=== PATIENT | female | born 1990 | race Caucasian/White ===

== ENCOUNTER 2024-07-09 10:42 | Emergency (ER) | payer MEDICAID, SELFPAY ==
[2024-07-09 10:43] VITALS: BP 141/74; PULSE 80; RESP 18; TEMP 36.6; O2SAT 100; BMI 27.7
[2024-07-09 10:48] VITALS: BP 141/74; PULSE 78; O2SAT 100
--- NOTE | 2024-07-09 10:52 | HMH.EDGENADL ---
Discharge Plan Disposition Patient Disposition: Home, Self-Care Referrals Follow up/Referrals: Mariajose Hooker DO [Staff Physician] - See instructions John Alvarez MD [Primary Care Provider] - See instructions Activity Restrictions/Add. Instructions Additional Instructions/Restrictions: Follow-up on Saturday as scheduled. If you develop any new or worsening symptoms, or if you become concerned for your health for any reason, return to the emergency department for evaluation contact Dr. Hooker's office for ABSORPTION AND ADSORPTION ENGINEER follow-up for source control bleeding. Clinical Impressions Clinical Impression: Anemia, Menorrhagia Instructions Patient Instructions: DI for Iron Deficiency Anemia-Adult Print Language Print Language: Danish Discharge ED Provider: Tai Catalan General Adult HPI General Chief complaint: Syncope Stated complaint: dizzy, syncopy Time Seen by Provider: 07/09/24 10:52 Mode of Arrival: Ambulatory Source of Information: Patient Limitations: No Limitations Description of Symptoms (Recalled from ER Triage Doc. by RN): Patient reports an iron deficiency and has an appointment with her specialist next week. States she has continued to get worse and feels as if she is going to pass out. History of Present Illness HPI narrative: This is a 34-year-old female with a history of iron deficiency anemia presents to the emergency department for feeling as if she is going to pass out. Patient states that for several weeks, she has had feelings of lightheadedness when standing and feeling that her heart is racing. She notes that she was diagnosed with iron deficiency anemia and told that her iron level was 3. She notes that Saturday of next week, she is supposed to get an iron infusion. She states that her symptoms worsen, which is why she is presenting to the ED today. She denies any current chest pain or shortness of breath. She states that she feels pale. She notes that she has heavy periods and is currently on her period. She states that they normally last 7 days and she is currently on day 4. She has no other complaints or concerns at this time. Related Data Allergies Allergy/AdvReac Type Severity Reaction Status Date / Time No Known Allergies Allergy Verified 07/09/24 10:51 [facility] Disclaimer: The information contained in this section may have been updated after the patient was seen, as this information can be updated by other users. Social History Smoking Status: Current every day smoker alcohol intake: never current occupational status: other details: unknown Travel in the last 8 weeks: None ROS Obtained: Yes All systems reviewed & no additional complaints except as documented Physical Exam General General appearance: alert and in no apparent distress Head Head exam: atraumatic Eye Eye exam: Present normal appearance ENT ENT exam: Present normal external ear exam Neck Neck exam: Present full ROM Chest Chest inspection: Present symmetric chest wall rise Respiratory Respiratory exam: Present normal lung sounds bilaterally; Absent respiratory distress Cardiovascular Cardiovascular exam: Present regular rate and normal rhythm Abdominal Exam Abdominal exam: Present soft; Absent tenderness or guarding Extremities Exam Extremities exam: Present normal inspection Back Exam Back exam: Present normal inspection Neurological Exam Neurological exam: Present alert and oriented X3 Psychiatric Psychiatric exam: Present normal affect Skin Skin exam: Present warm, dry and other (pale) Medical Decision Making Medical Records Medical records reviewed: Yes I reviewed the patient's medical records. MR Comment: No previous iron studies or baseline hemoglobin levels are in the EMR Ashish Inquiry Pt receiving controlled substance: No Vital Signs: 07/09/24 10:43 07/09/24 10:48 07/09/24 11:30 Temperature 97.9 F Temperature Source Oral Pulse Rate 78 69 Pulse Rate [Radial] 80
--- NOTE | 2024-07-09 11:08 | ECG_ITS ---
APPROVED REPORT Exam: Resting ECG HR:75 bpm ECG Measurements Heart Rate 75 AXES OK 171 P 61 QRSd 94 QRS 75 QT 375 T 60 QTc 405 Conclusion SINUS RHYTHM NORMAL ECG Electronically signed by : ZOILA WELDON, 07/14/2024 18:26:20
[2024-07-09 11:10] LABS: Basophils # 0.1 K/mm3 (0-0.2); Basophils % 0.8 % (0.1-2.0); Eosinophils # 0.2 K/mm3 (0.0-0.4); Eosinophils % 2.9 % (0.1-12.0); Hematocrit 27.5 % (37.0-47.0); Hemoglobin 7.9 g/dL (12.2-16.2); Lymphocytes # 2.5 K/mm3 (0.7-4.5); Lymphocytes % 34.1 % (10-50); Mean Corpuscular HGB Conc 28.8 g/dL (31.8-35.4); Mean Corpuscular Hemoglobin 20.6 pg (27.0-31.2); Mean Corpuscular Volume 71.5 fl (81-99); Mean Platelet Volume 7.2 fl (7.4-10.4); Monocytes # 0.5 K/mm3 (0.1-1.0); Monocytes % 6.8 % (1.7-9.3); Neutrophils % 55.3 % (37.0-80.0); Platelet Count 453 K/mm3 (142-424); Red Blood Count 3.84 M/mm3 (4.20-5.40); Red Cell Distribution Width 19.6 % (11.5-17.5); White Blood Count 7.3 K/mm3 (4.8-10.8)
[2024-07-09 11:23] LABS: Albumin Level 4.4 g/dl (3.5-5.0); Chloride 106 mmol/L (98-107); Sodium 136 mmol/L (136-145)
[2024-07-09 11:24] LABS: Potassium 4.8 mmoL/L (3.5-5.1)
[2024-07-09 11:26] LABS: Alanine Aminotransferase 24 U/L (12-78); Albumin/Globulin Ratio 1.6 (1.1-1.8); Alkaline Phosphatase 51 U/L (38-126); Anion Gap 8.8 mEq/L (5-15); Aspartate Amino Transferase 38 U/L (14-36); Blood Urea Nitrogen 9 mg/dl (7-17); Carbon Dioxide 26 mmol/L (22.0-30.0); Creatinine Clearance Estimated 110 mL/min (50-200); Estimated Glomerular Filt Rate 71 ml/min (>60); GFR (African American) 86 ML/MIN (>60); Globulin 2.8 g/dL (1.3-3.2); Glucose 101 mg/dl (74-100); Total Protein,Serum 7.2 g/dl (6.3-8.2)
[2024-07-09 11:30] VITALS: PULSE 69; O2SAT 99
[2024-07-09 11:57] LABS: Thyroid Stimulating Hormone 1.36 uIU/mL (0.465-4.68)
[2024-07-09 12:00] VITALS: PULSE 71; O2SAT 99
[2024-07-09 12:30] VITALS: PULSE 71; O2SAT 98
--- NOTE | 2024-07-09 14:02 | PC.NURSE ---
Dr. Catalan wanted to check on pt receiving Iron infusion. pt does have an appt with Dr. Lowe on Saturday (07/14). I called infusion and s/w Rachael Cabrales RN. She reports unfortunately they will not able to get infusion until after seeing Dr. Lowe and will need approval. Dr. Catalan notified of this
[2024-07-09 14:43] LABS: Iron 39 ug/dL (37-170)
[2024-07-09 14:52] LABS: Total Iron Binding Capacity 419 ug/dL (265-497)
[2024-07-09 15:20] VITALS: BP 133/70; PULSE 70; RESP 20; TEMP 36.7; O2SAT 98
[2024-07-09 15:20] LABS: Ferritin 4.02 ng/ml (6.24-137)
== END 2024-07-09 15:29 | disposition home or self-care (01) ==
PROVIDERS: Emergency Provider Student in an Organized Health Care Education/Training Program; PCP Family Medicine
DX: D50.9 Iron deficiency anemia, unspecified (principal); N92.0 Excessive and frequent menstruation with regular cycle
CPT/HCPCS: 80050; 80053; 82728; 83540; 83550; 84443; 85025; 93005; 99283

== ENCOUNTER 2024-07-16 10:04 | Outpatient (CLI) | payer MEDICAID, SELFPAY ==
[2024-07-16 10:08] VITALS: BP 130/78; PULSE 74; RESP 16; TEMP 36.7; O2SAT 98; BMI 26.4
[2024-07-16] MEDS: SODIUM CHLORIDE 0.9% 10ML FLUSH SYRINGE 10 ML IV (10:15)
[2024-07-16] MEDS: IRON SUCROSE COMPLEX 200 MG in 0.9 % SODIUM CHLORIDE 100 ML 220 MG IV (10:18)
[2024-07-16] MEDS: SODIUM CHLORIDE 0.9% 50ML BAG 50 ML IV (10:18)
[2024-07-16 10:52] VITALS: BP 136/73; PULSE 69; RESP 16; O2SAT 99
== END 2024-07-16 10:57 | disposition home or self-care (01) ==
LOC: INF 10:05
PROVIDERS: Visit Provider Internal Medicine Medical Oncology
DX: D50.9 Iron deficiency anemia, unspecified (principal)
CPT/HCPCS: 96365; J1756

== ENCOUNTER 2024-07-21 11:12 | Outpatient (CLI) | payer MEDICAID, SELFPAY ==
[2024-07-21 11:26] VITALS: BP 154/83; PULSE 83; RESP 18; O2SAT 100
[2024-07-21] MEDS: IRON SUCROSE COMPLEX 200 MG in 0.9 % SODIUM CHLORIDE 100 ML 220 MG IV (11:26)
[2024-07-21] MEDS: SODIUM CHLORIDE 0.9% 50ML BAG 50 ML IV (11:26)
[2024-07-21 12:05] VITALS: BP 130/81; PULSE 77; RESP 18; O2SAT 100
== END 2024-07-21 12:07 | disposition home or self-care (01) ==
LOC: INF 11:12
PROVIDERS: PCP Family Medicine; Visit Provider Internal Medicine Medical Oncology
DX: D50.9 Iron deficiency anemia, unspecified (principal)
CPT/HCPCS: 96365; J1756

== ENCOUNTER 2024-07-28 09:08 | Outpatient (CLI) | payer MEDICAID, SELFPAY ==
[2024-07-28 09:21] VITALS: BP 116/71; PULSE 72; RESP 18; TEMP 36.4; O2SAT 100
[2024-07-28] MEDS: IRON SUCROSE COMPLEX 200 MG in 0.9 % SODIUM CHLORIDE 100 ML 220 MG IV (09:21)
[2024-07-28] MEDS: SODIUM CHLORIDE 0.9% 50ML BAG 50 ML IV (09:21)
[2024-07-28] MEDS: SODIUM CHLORIDE 0.9% 10ML FLUSH SYRINGE 10 ML IV (09:21)
[2024-07-28 10:00] VITALS: BP 117/63; PULSE 65; RESP 16; TEMP 36.4; O2SAT 100
== END 2024-07-28 10:05 | disposition home or self-care (01) ==
LOC: INF 09:09
PROVIDERS: PCP Family Medicine; Visit Provider Internal Medicine Medical Oncology
DX: D50.9 Iron deficiency anemia, unspecified (principal)
CPT/HCPCS: 96365; J1756

== ENCOUNTER 2024-08-04 09:06 | Outpatient (CLI) | payer MEDICAID, SELFPAY ==
[2024-08-04 09:16] VITALS: BP 139/67; PULSE 65; RESP 18; TEMP 36.6; O2SAT 99
[2024-08-04] MEDS: SODIUM CHLORIDE 0.9% 50ML BAG 50 ML IV (09:16)
[2024-08-04] MEDS: SODIUM CHLORIDE 0.9% 10ML FLUSH SYRINGE 10 ML IV (09:16)
[2024-08-04] MEDS: IRON SUCROSE COMPLEX 200 MG in 0.9 % SODIUM CHLORIDE 100 ML 220 MG IV (09:16)
[2024-08-04 09:55] VITALS: BP 129/66; PULSE 73; RESP 16; TEMP 36.6; O2SAT 99
== END 2024-08-04 09:57 | disposition home or self-care (01) ==
LOC: INF 09:06
PROVIDERS: PCP Family Medicine; Visit Provider Internal Medicine Medical Oncology
DX: D50.9 Iron deficiency anemia, unspecified (principal)
CPT/HCPCS: 96365; J1756

== ENCOUNTER 2024-08-11 09:18 | Outpatient (CLI) | payer MEDICAID, SELFPAY ==
[2024-08-11 09:38] VITALS: BP 114/70; PULSE 80; RESP 18; TEMP 36.4; O2SAT 99; BMI 26.3
[2024-08-11] MEDS: IRON SUCROSE COMPLEX 200 MG in 0.9 % SODIUM CHLORIDE 100 ML 220 MG IV (09:39)
[2024-08-11] MEDS: SODIUM CHLORIDE 0.9% 10ML FLUSH SYRINGE 10 ML IV (09:39)
[2024-08-11] MEDS: SODIUM CHLORIDE 0.9% 50ML BAG 50 ML IV (09:39)
[2024-08-11 10:25] VITALS: BP 124/63; PULSE 66; RESP 18; TEMP 36.4; O2SAT 100
== END 2024-08-11 10:30 | disposition home or self-care (01) ==
LOC: INF 09:19
PROVIDERS: PCP Family Medicine; Visit Provider Internal Medicine Medical Oncology
DX: D50.9 Iron deficiency anemia, unspecified (principal)
CPT/HCPCS: 96365; J1756

== ENCOUNTER 2025-05-11 00:31 | Emergency (ER) | payer MEDICAID, SELFPAY ==
[2025-05-11 00:43] VITALS: BP 140/83; PULSE 80; RESP 16; TEMP 37.2; O2SAT 99; BMI 24.3
--- OUTSIDE RECORDS SUMMARY | 2025-05-11 01:03 | XMS_ITS | Data Portability ---
Author Organization [facility], [facility] Address [address] [place] [id number] Assessment No assessment recorded. Plan of Treatment Reminders Order Date Submit Date Provider Last Modified By Organization Details Last Modified Time Details Appointments None recorded. Lab None recorded. Referral None recorded. Procedures None recorded. Surgeries None recorded. Imaging None recorded. Medication Orders Infed 50 mg/mL injection solution 2023 024 [id number] [id number], [address] [place], [address], 15:22:15 Patient TargetsNo targets recorded. Patient InstructionsNo instructions recorded. Reason for Referral None Reported. Procedures Surgical History Date Name Laterality Status Provider Name and Address Organization Details Recorded Time tubal occlusion completed V[facility] 07/06/2024 14:48:58 delivery only completed Viji [facility] 07/06/2024 14:49:37 tonsillectomy completed [facility]iji [facility] 07/06/2024 14:49:53 Imaging Results None recorded. Procedure Notes None recorded. Medical Equipment None Reported. Allergies No known drug allergies Medications Name Sig Start Date Stop Date Status Note LastModified by Organization Details LastModified Time sertraline 25 mg tablet TAKE 1 TABLET BY MOUTH EVERY DAY active Not Available Not Available No t Available Infed 50 mg/mL injection solution Infuse 1000mg IV once 024 active Not Available Not Available Not Avai lable Vitals Date Recorded Body height Body mass index (BMI) Body weight Body temperature Oxygen saturation Oxygen saturation in Arterial blood by Pulse oximetry Heart rate Respiratory rate Systolic blood pressure Diastolic blood pressure Provider Name and Address Organization Details Last Updated DateTime 172.72 cm 27 kg/m2 10460.2 9 g 98.4 [degF] 98 % 98 % 92 /min 16 /min 121 mm[Hg] 59 mm[Hg] Viji [facility] [place] 14:39:48 Social History Question Answer Notes LastModified by Organizat ion Details LastModified Time Tobacco Smoking Status Former Smoker Viji willett, [facility] [place] 07/06/2024 14:42:39 Do You Have An Advance Directive? No Information n ot available 07/06/2024 Do You Wear A Helmet When Biking? No Information not available 07/06/2024 Are You Blind Or Do You Have Difficulty Seeing? Yes Information n ot available 07/06/2024 Is Blood Transfusion Acceptable In An Emergency? Yes Information not available 07/06/2024 What Is Your Level Of Caffeine Consumption? Moderate Information not available 07/06/2024 In The 14 Days Before Symptom Onset, Have You Had Close Contact With A Laboratory-confirm ed COVID-19 While That Case Was Ill? No Information n ot available 07/06/2024 In The 14 Days Before Symptom Onset, Have You Had Close Contact With A Person Who Is Under Investigation For COVID-19 While That Person Was Ill? No Information not available 07/06/2024 Have You Been To An Area Known To Be High Risk For COVID-19? No Information not available 07/06/2024 Are You Deaf Or Do You Have Serious Difficulty Hearing? No Information not available 07/06/2024 What Type Of Diet Are You Following? REGULAR Information n ot available 07/06/2024 Have You Processed Blood Or Body Fluids From An Ebola Virus Disease Patient Without Appropriate PPE? No Information not available 07/06/2024 Do You Reside In Or Have You Traveled To An Area Where Ebola Virus Transmission Is Active? No Information not available 07/06/2024 Have There Been Any Changes To Your Family Or Social Situation? No Information no t available 07/06/2024 Are There Any Guns Present In Your Home? No Information not available 07/06/2024 Have You Recently Or Are You Planning To Travel To An Area With Zika Virus? No Information not available 07/06/2024 Do You Use Insect Repellent Routinely? No Information not available 07/06/2024 Do You Feel Safe At Home? Yes Information not available 07/06/2024 Do You Have A Medical Power Of Foundry Tender? No Information not available 07/06/2024 How Many Children Do You Have? 5 Information not available 07/06/2024 What Is Your Current Pack Years? 10-19packyear s Information not available 07/06/2024 Do You Have Any Pets? Yes Information not available 07/06/2024 Do You Use Protection During Sex? No Tubal Information not available 07/06/2024 What Is Your Relationship Status? Information not available 07/06/2024 Do You Use Your Seat Belt Or Car Seat Routinely? Yes Information not available 07/06/2024 Are You Sexually Active? Yes Information not available 07/06/2024 Do You Have Smoke And Carbon Monoxide Detectors In Your Home? Yes Information not available 07/06/2024 At What Age Did You Start Smoking Tobacco? 28 Information not available 07/06/2024 Are You Passively Exposed To Smoke? No Information no t available 07/06/2024 How Much Tobacco Do You Smoke? 1 PPD Information not available 07/06/2024 Do You Use Sunscreen Routinely? No Information not available 07/06/2024 How Many Years Have You Smoked Tobacco? 5 Information not available 07/06/2024 Do You Have Difficulty Walking Or Climbing Stairs? No Information not available 07/06/2024 Are You Currently In School? No Information not available 07/06/2024 Sex: Unknown Functional Status Question Answer Note LastModified by Organizat ion Details LastModified Time Do you use any illicit or recreational drugs? No Information not available 07/06/2024 Do you or have you ever used any other forms of tobacco or nicotine? No Information not available 07/06/2024 What is your level of alcohol consumption? Occasional Information not available 07/06/2024 Are you currently employed? No Information not available 07/06/2024 Do you have transportation difficulties? No Information not available 07/06/2024 Do you have difficulty doing errands alone? No Information not available 07/06/2024 Are you able to care for yourself? Yes Information n ot available 07/06/2024 Do you have difficulty dressing or bathing? No Information not available 07/06/2024 What is your exercise level? None Information not available 07/06/2024 Mental Status Question Answer Note LastModified by Organizat ion Details LastModified Time Do you feel stressed (tense, restless, nervous, or anxious, or unable to sleep at night)? [id number] Information not available 07/06/2024 Do you have difficulty concentrating, remembering or making decisions? No Information no t available 07/06/2024 Family History Nothing Reported. Medical History Condition Response Allergies (Food, seasonal, environmental ) N Allergies/Hayfever N Anxiety/Depression Y Gout N Thyroid Disease N Atrial Fibrillation N Colon Cancer N Blood Diseases N Hyperthyroidism N Breast Cancer N Emphysema N Lung Disease N Hypothyroidism N Brain Tumors N COPD N Anemia Y Multiple Sclerosis N Anesthesia Complications N Lung Mass N Diabetes N Autoimmune disease N Arthritis Y Blood Clot N Congestive Heart Failure (CHF) N Hyperlipidemia N Acid Reflux (GERD) N Cancer N Diverticulitis N Bladder or Kidney Problems N High Cholesterol N GERD/Reflux N Aneurysm N Liver Disease N Heart Disease N Arrhythmia N Fibromyalgia N Hypertension N Osteoporosis N Kidney Disease N Gynecological HistoryNo gynecological history recorded. Obstetrics History GPAL:G 0 P 0 0 0 0 Past Encounters Encounter ID Performer Location Encounter Start Date Encounter Closed Date Diagnosis/Indication Diagnosis SNOMED-CT Code Diagnosis ICD10 Code Diagnosis Note [id number] MD SANGITA PATINO [facility] [address] [place] [id number] 07/06/2024 14:31:16 07/06/2024 15:10:03 Iron deficiency anemia 66748217 D50.9 The patient prefers treatment at [facility] since it is closer to her house but I explained that I do not have privileges at that hospital. I recommend treatment with Infed since it can be given in 1 day. She does need treatment urgently since her Hgb is very low at 7.7. I recommend she follow up in 6 weeks for repeat CBC and iron studies. Health Concerns Section Related Observation LastModified by Organization Detai ls LastModified Time None Recorded Concern Status LastModified by Organization Details LastModified Time None Recorded Advance Directives Directive N: Payers Insurance Date Sequence Insurance Name Policy Number Policy Morillo Covered Member ID Morillo Member ID Guarantor Name 08/18/2024 1 [facility] (MEDICAID HMO) Susana Tirado [id number] Susana Corbett Notes Date Note Type Note Provider Name and Address Organization Details Recorded Time 07/06/2024 text/html The pt comes in today for severe iron deficiency. She is fatigued and short of breath. She even feels unsteady at times and she craves ice all day long. She has very heavy periods and has needed IV iron before. The last time she got IV iron was in 2021 when she was with her daughter. She has been on oral iron but it did not raise her iron levels in the past. She says she only goes to the doctor when she is but she went to her PCP recently because she was concerned something serious was happening. Her iron and blood levels have never been this low according to the pt. Labs 07/03/24:WBC 8.5, Hgb 7.7, MCV 76, Plts 292, iron sat 3%, ferritin 4. NATALI OJEDA MD [address] [facility],[address], [place], [address], [facility] [place] 07/06/2024 15:22:55 OBGyn Episode No OBEpisode recorded.
--- OUTSIDE RECORDS SUMMARY | 2025-05-11 01:03 | XMS_ITS | Clinical Summary ---
Author Organization [facility] Address [address] [place] [address] Care Team Providers Care Coater Name Role Phone Pcp, No Primary Care Provider [phone] Source Comments This information has been disclosed to you from confidential records protectedfrom disclosure by state law. You shall make no further disclosure of thisinformation without the specific, written, and informed release of theindividual to whom it pertains, or as otherwise permitted by law. A generalauthorization for the release of medical or other information is not sufficientfor the purposes of therelease of HIV test results or diagnoses. [id number] Allergies No known active allergies Medications PNV b#95-ferrous fumarate-FA 28 mg iron- 800 mcg Tab Take 1 tablet by mouth daily. 30 tablet 12 1 Active ferrous gluconate (FERGON) 324 MG tabletIndications: complicated by anemia Take 1 tablet (324 mg total) by mouth daily with breakfast. 30 tablet 5 2 Active docusate sodium (COLACE) 100 MG capsule Take 1 capsule (100 mg total) by mouth daily. 60 capsule 2 Active hydrOXYzine HCL (ATARAX) 50 MG tablet Take 1 tablet (50 mg total) by mouth at bedtime as needed for Itching (for sleep). 30 tablet 2 Active simethicone (MYLICON) 80 MG chewable tablet Chew 1 tablet (80 mg total) by mouth 4 times a day as needed for Flatulence (after meals and at bedtime). 30 tablet 2 Active polyethylene glycol (GLYCOLAX) 17 gram/dose powder Take 17 g by mouth daily. 255 g 2 Active acetaminophen (TYLENOL) 500 MG tablet Take 2 tablets (1,000 mg total) by mouth every 8 hours. 60 tablet 1 2 Active ibuprofen (MOTRIN) 200 MG tablet Take 2 tablets (400 mg total) by mouth every 8 hours. 60 tablet 1 2 Active senna-docusate (SENNA-S) 8.6-50 mg per tablet Take 1 tablet by mouth every 12 hours as needed for Constipation. 20 tablet 2 Active ondansetron (ZOFRAN-ODT) 4 MG disintegrating tablet Take 1 tablet (4 mg total) by mouth every 8 hours as needed for Nausea. 20 tablet 2 Active Active Problems Problem Noted Date Diagnosed Date care following delivery 11/2021 BV (bacterial vaginosis) 01/07/2022 Anemia affecting in third trimester Overview (03/22/2022): Iron levels very low Start supplement 11/30 Venofer infusions started 02/2022 (weekly) Immunizations Immunization Administration Dates Next Due Influenza, quadrivalent, preservative-free 11/30/2021(Deferred: Patient Refused) tdap 01/23/2022,07/28/2016,07/01/2011 Family History Relation Status Comments Father Alive Maternal Grandfather Maternal Grandmother Alive Mother Alive Paternal Grandfather Alive Paternal Grandmother Alive Social History Tobacco Use Types Packs/Day Years Used Date Smoking Tobacco: Every Day Cigarettes 1 4 Smokeless Tobacco: Never Tobacco Cessation:Ready to Q uit: No Alcohol Use Standard Drinks/Week Comments Not Currently 0 (1 standard drink = 0.6 oz pur e alcohol) AUDIT-C Answer Date Recorded Q1: How often do you have a drink containing alc ohol? Monthly or less 03/30/2022 Q2: How many drinks containi ng alcohol do you have on a typical day when you are drinking? 3 or 4 03/30/2022 Q3: How often do you have si x or more drinks on one occasion? Less than monthly 03/30/2022 PHQ-2 Answer Date Recorded PHQ-2 Total Score 0 11/02/2021 [place] Depression Scale Answer Date Recorded [place] Depression Scale Total 0 05/11/2022 The thought of harming myself has occurred to me . Never 05/11/2022 Comments No Sex and Gender Information Value Date Recorded Sex Assigned at Female 09/26/2021 3:11 PM EST Legal Sex Female 6:30 PM EST Gender Identity Female 09/26/2021 3:11 PM EST Sexual Orientation Straight 09/26/2021 3: 11 PM EST Last Filed Vital Signs Vital Sign Reading Time Taken Comments Blood Pressure 125/72 05/11/2022 10:29 AM EDT Pulse 79 05/11/2022 10:29 AM EDT Temperature 36.4 C (97.5 F) 04/01/2022 8:15 AM EDT Respiratory Rate 18 04/01/2022 8:15 AM EDT Oxygen Saturation 98% 04/01/2022 8:15 AM EDT Inhaled Oxygen Concentration 98% 04/01/2022 8 :15 AM EDT Weight 84.8 kg (187 lb) 05/11/2022 10:29 AM EDT Height 172.7 cm (5' 8 ) 05/11/2022 10:29 AM EDT Body Mass Index 28.43 05/11/2022 10:29 AM EDT Plan of Treatment Health Maintenance Due Date Last Done Comments Hepatitis C Screening (MyChart) 1988 Depression Screening 01/21/2006 Immunization: Hepatitis B (1 of 3 - 19+ 3-dose series) 01/21/2007 Immunization: Pneumococcal ( 1 of 2 - PCV) 01/21/2007 Cervical Cancer Screening/Pa p Smear (MyChart) 01/21/2018 Alcohol Misuse Screening 03/30/2023 03/30/2022 Immunization: COVID-19 ( season) 2024 Immunization: Influenza (MyC rodriguez) (Season Ended) 2025 Immunization: DTaP/Tdap/Td ( 4 - Td or Tdap) 01/24/2032 01/23/2022, 07/28/2016, 07/01/2011 HIV Screening Completed 03/30/2022, 11/02/2021 Procedures Procedure Name Priority Date/Time Associated Diagnosis Comments , HIV 1/2 AB+AG WITH REFLEX STAT 03/30/2022 7:25 AM EDT from Last 3 Months or Most Recently Relevant to Health Maintenance Results * , HIV 1/2 Ab+Ag with Reflex (03/30/2022 7:25 AM EDT) HIV 1+2 AB/AGN Nonreactive Nonreactive 03/30/2022 8:16 AM EDT HEALTH LAB Serum 03/30/2022 7:25 AM EDT 03/30/2022 7:30 AM EDT Narrative HEALTH LAB - 03/30/2022 8:16 AM EDT HIV-1 p24 Antigen and HIV-1/HIV-2 Antibody not detected. us Roxi Cavanaugh MD LAB BLOOD ORDERABLES Final R esult [facility] [address] [place] [address], [facility] from Last 3 Months or Most Recently Relevant to Health Maintenance [place] [address] [place] [address] Advance Directives For more information, please contact: [phone] * Full Code (Latest Code Status on File) Date Activated Date Inactivated Comments 03/30/2022 12:05 PM 04/01/2022 5:47 PM * Full Code Date Activated Date Inactivated Comments 03/30/2022 7:45 AM 03/30/2022 12:04 PM Care Teams Coater Relationship Specialty Start Date End Date Pcp, No No Address PCP - General 10/12/21
--- NOTE | 2025-05-11 01:40 | PC.NURSE ---
ed provider at the bedside at this time.
[2025-05-11] MEDS: LIDOCAINE 5% TRANSDERMAL PATCH 1 EACH TD (01:54)
[2025-05-11] MEDS: METHOCARBAMOL 500MG TABLET 500 MG PO (01:54)
[2025-05-11] MEDS: ACETAMINOPHEN 500MG TAB 1000 MG PO (01:54)
[2025-05-11] MEDS: KETOROLAC 30MG/ML VIAL 30 MG IM (01:54)
--- NOTE | 2025-05-11 01:56 | HMH.EDGENADL ---
Discharge Plan Disposition Patient Disposition: Home, Self-Care Condition: Good Prescriptions Prescriptions: New methocarbamol 500 mg tablet 500 mg PO Q6H PRN (Reason: muscle spasm) Qty: 30 0RF lidocaine 5 % adhesive patch,medicated See Rx Instructions .ROUTE .COMPLEX Qty: 15 0RF Rx Instructions: Apply to most painful area and leave on for 12 hours, remove and leave off for 12 hours before using a new patch Referrals Follow up/Referrals: John Alvarez MD [Primary Care Provider, Medical] - See instructions Activity Restrictions/Add. Instructions Additional Instructions/Restrictions: You were evaluated in the ER and are believed to be appropriate for discharge at this time. Take Tylenol and ibuprofen as needed for pain, do not exceed the recommended dose on the bottle. Drink water and eat a small snack each time you take these medications to avoid side effects. Take the prescribed methocarbamol (muscle relaxer) if needed for muscle spasm, be mindful this medication may make you sleepy, do not drive or operate machinery after taking it. Use the prescribed lidocaine patches as directed. Wear the sling as needed for comfort, but as discussed remove your arm from the sling multiple times a day and perform gentle range of motion exercises to avoid frozen shoulder. Call your primary care office and make an appointment for reevaluation in 2 to 3 days to discuss further follow-up, possible physical therapy, possible MRI or other imaging. Return to the ER with any new, worsening, or otherwise concerning symptoms. Clinical Impressions Clinical Impression: Acute pain of right shoulder Print Language Print Language: Slovak Discharge ED Provider: Bre Valdes Adult HPI General Chief complaint: Extremity Injury, Upper Stated complaint: r shoulder pain Time Seen by Provider: 05/11/25 00:54 Mode of Arrival: Ambulatory Source of Information: Patient Description of Symptoms (Recalled from ER Triage Doc. by RN): Pt presents for eval of pain to right shoulder that began approx 1 week ago when the patient woke up in an awkward position. Pt reports pain has now moved to her neck, worse with movement. Pt reports to having a massage in attempts to relieve the pain with some relief. History of Present Illness HPI narrative: 35-year-old female presents to the ER complaining of right shoulder pain. Patient reports 1 week ago her symptoms started when she woke up in a very awkward position with her arm kind of raised and cricket under her head. She states for at least a day her arm felt like it was asleep and numb/tingly. That sensation has resolved but she has continued having a sensation of tight muscle and sharp, shooting pain into the right arm. Pain radiates from the right side of the neck through the top of the right shoulder and into the right arm. She reports she had a massage a few days ago which somewhat relieved the tightness feeling in the muscle but has not relieved the sharp, shooting pain. She states she has exquisite pain when trying to raise her arm out to the side or above her head. She does not have any numbness, tingling, or specific weakness in it, but the pain is unbearable with some movements. She has not had any traumatic injuries. She reports she has taken ibuprofen a few times for this without relief. She also tried a clear topical muscle rub that did not offer any relief. She has not had any imaging, this is the first time she has been evaluated for this problem. She denies difficulty breathing, nausea, vomiting, diarrhea, or other associated symptoms. Patient is right-hand dominant. 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 Related Data Previous Rx's ?Medication ?Instructions ?Recorded lidocaine 5 % topical patch See Rx Instructions topical 05/11/25 .COMPLEX #15 ea methocarbamol 500 mg tablet 500 mg PO Q6H PRN muscle spasm #30 05/11/25 tabs Allergies Allergy/AdvReac Type Severity Reaction Status Date / Time No Known Allergies Allergy Verified 04/08/25 13:50 [facility] Disclaimer: The information contained in this section may have been updated after the patient was seen, as this information can be updated by other users. Medical History (Updated 05/11/25 @ 01:51 by Bre Valdes MD) No significant past medical history Surgical History (Updated 04/08/25 @ 15:46 by Mariajose Hooker DO) Hx of section History of surgery on wrist Hx of tonsillectomy Family History Other No significant family history Social History Smoking Status: Current every day smoker tobacco type: cigarettes packs per day: 1 alcohol intake: never current occupational status: unemployed and other details: unknown Travel in the last 8 weeks?: None Have you lived/traveled outside [place] in past 30 days?: No Contact w/someone who lives/traveled outside US past 30 days?: No Exposure to someone with infectious disease in past 14 days?: No Do you have a fever (greater than 100.4 F or 38 C)?: No Have you tested positive for COVID-19?: No Exposed to someone with COVID-19 in past 14 days?: No Do you have a sore throat?: No Do you have a cough?: No Do you have any weakness?: No Do you have any diarrhea?: No Are you experiencing any unusual bleeding?: No Do you have any muscle aches/pain?: No Do you have any abdominal pain?: No Are you experiencing loss of taste or smell?: No ROS Obtained: Yes Systems reviewed as appropriate & no additional complaints except as documented Per HPI Physical Exam General General appearance: alert and in no apparent distress Head Head exam: atraumatic and normocephalic Eye Eye exam: Present PERRL and EOMI ENT ENT exam: Present mucous membranes moist Neck Neck exam: Present normal inspection, full ROM and other (Patient has full range of motion of the neck, when looking to the left, she has worse pain through the right neck and right shoulder; patient has tenderness of the right trapezius muscle with some spasm); Absent tenderness (No spinal tenderness, no deformity or step-off) or lymphadenopathy Chest Chest inspection: Present symmetric chest wall rise Respiratory Respiratory exam: Present normal lung sounds bilaterally; Absent respiratory distress, wheezes or stridor Cardiovascular Cardiovascular exam: Present regular rate and normal rhythm Extremities Exam Extremities exam: Present full ROM (Significant pain with abduction), tenderness (Right trapezius muscle with spasm) and normal capillary refill; Absent joint swelling Neurological Exam Neurological exam: Present alert, oriented X3, CN II-XII intact and normal gait; Absent motor sensory deficit Psychiatric Psychiatric exam: Present normal affect and normal mood Skin Skin exam: Present warm and dry Medical Decision Making Medical Records Medical records reviewed: Yes I reviewed the patient's medical records. Screening: Per USPSTF and CDC recommendations, given the prevalence of disease in our region, it is our hospital?s policy to screen for HIV and viral Hepatitis for all patients aged 18 and over and those with ongoing risk factors. Ashish Inquiry Pt receiving controlled substance: No Vital Signs: 05/11/25 00:43 Temperature 98.9 F Temperature Source Oral Pulse Rate [Radial] 80 Respiratory Rate 16 Blood Pressure [Right Arm] 140/83 Blood Pressure Mean [Right Arm] 102 Blood Pressure Position [Right Arm] Sitting 02 Sat by Pulse Oximetry 99 Oxygen Delivery Method Room Air Orders (Tests/Meds): ED MEDICATIONS Discontinued Medications Generic Name Dose Route Start Last Admin Trade Name Doron PRN Reason Stop Dose Admin Acetaminophen 1,000 mg 05/11/25 01:47 05/11/25 01:54 Acetaminophen 500mg Tab PO 05/11/25 01:48 1,000 mg ONCE ONE Administration Ketorolac Tromethamine 30 mg 05/11/25 01:47 05/11/25 01:54 Ketorolac 30mg/Ml Vial IM 05/11/25 01:48 30 mg ONCE ONE Administration Lidocaine 1 each 05/11/25 01:47 05/11/25 01:54 Lidocaine 5% Transdermal Patch TD 05/11/25 01:48 1 each ONCE ONE Administration Methocarbamol 500 mg 05/11/25 01:47 05/11/25 01:54 Methocarbamol 500mg Tablet PO 05/11/25 01:48 500 mg ONCE ONE Administration Medical Decision Narrative: In summary, this 35-year-old female presents to the emergency department today with right shoulder pain radiating into the right arm. On initial evaluation patient is hemodynamically stable, afebrile, GCS 15, no neurologic deficits, patient has full range of motion throughout however looking to the left with her neck and trying to abduct her right arm because significant pain. She is neurovascularly intact throughout. There was no external evidence of acute traumatic injury, right trapezius muscle is tender and has evidence of spasm. Differential diagnosis includes but is not limited to muscle spasm, radiculopathy, I also considered brachial plexus injury, neuropraxia. Without acute traumatic injury in 1 week of stable symptoms I do not believe patient requires any labs or imaging in the ER at this time. I had extensive discussion counseling and educating the patient on her symptoms and believe the etiology of her pain given the way it started which very much increases my concern for a brachial plexus injury. I offered the patient gabapentin which she would prefer to avoid. Instead we discussed multimodal pain control with Tylenol, Toradol, lidocaine patch, methocarbamol. She was much more agreeable to this. These medications were administered in the ER. Methocarbamol and lidocaine patch were prescribed for outpatient management and patient was given instructions and education about the potential sedating side effects of methocarbamol. Patient was provided a sling for comfort but instructed on gentle range of motion exercises to avoid frozen shoulder. She is appropriate for discharge at this time and comfortable with this plan. Patient was given instructions on symptomatic management, medication use, follow up instructions, and return precautions for the emergency department. Patient indicated understanding and was discharged in stable condition. Critical Care Critical Care Time Critical Care Time: No
[2025-05-11 02:05] VITALS: BP 124/76; PULSE 72; RESP 18; TEMP 36.6; O2SAT 98
--- NOTE | 2025-05-11 02:05 | PC.NURSE ---
sling applied prior to discharge.
== END 2025-05-11 02:07 | disposition home or self-care (01) ==
PROVIDERS: Emergency Provider Emergency Medicine; PCP Family Medicine
DX: M25.511 Pain in right shoulder (principal); F17.210 Nicotine dependence, cigarettes, uncomplicated
CPT/HCPCS: 96372; 99283; J1885

== ENCOUNTER 2025-08-25 12:50 | Outpatient (CLI) | payer MEDICAID, SELFPAY ==
--- OUTSIDE RECORDS SUMMARY | 2025-08-25 12:53 | XMS_ITS | Clinical Summary ---
Author Organization [facility] Address [address] [place] [id number] Care Team Providers Care Dining Room Coordinator Name Role Phone Pcp, No Primary Care [...] therelease of HIV test results or diagnoses. [id number] Allergies No known active allergies Medications [...] Date Recorded PHQ-2 Total Score 0 11/02/2021 [place] Depression Scale Answer Date Recorded [place] Depression Scale Total 0 05/11/2022 The thought [...] 05/11/2022 10:29 AM EDT Plan of Treatment Not on file Insurance [facility] care Address: [facility] [address] [place] [address] Advance Directives For more information, please contact: [phone] * Full Code (Latest Code Status on File) Date Activated Date Inactivated Comments 03/30/2022 12:05 PM 04/01/2022 5:47 PM * Full Code Date Activated Date Inactivated Comments 03/30/2022 7:45 AM 03/30/2022 12:04 PM Care Teams Dining Room Coordinator Relationship Specialty Start Date End Date Pcp, No No Address PCP - General 10/12/21
--- NOTE | 2025-08-25 13:00 | US_ITS ---
PROCEDURE: US TRANSVAGINAL CLINICAL INDICATION: AUB, heavy periods COMPARISON: No exams were available for comparison FINDINGS: Transvaginal sonographic images of the pelvis were obtained. UTERUS: 9.0cm x 6.5 cmx 4.8 cm anteverted with a combined endometrial thickness of 10.8mm. There is a fluid-filled scar defect. LEFT OVARY: 4.3cmx2.5cmx2.8cm with a volume of 15.9ml. There is a dominant follicle measuring 1.8 cm x 1.3 cm x 1.5 cm. RIGHT OVARY: 3.0cmx 2.1cmx2.5 cm with a volume of 8.4ml. There are several small peripheral follicles. Both ovaries are seen and appear normal. Doppler flow to both ovaries are seen. There is no fluid in the cul-de-sac. IMPRESSION: 1. Anteverted, slightly enlarged uterus. The endometrium appears normal. 2. There is a fluid-filled scar with some tracking of fluid up into the endometrium and downward into the cervical canal. 3. The right ovary has several small follicles. The left ovary has a dominant follicle measuring 1.8 cm. 4. No fluid in the cul-de-sac. Dictated by: Db Ambrocio MD 08/25/2025 19:57 Db Ambrocio MD in OV 08/25/2025 19:57
== END 2025-08-25 23:59 | disposition home or self-care (01) ==
LOC: RAD 12:50
PROVIDERS: PCP Family Medicine; Visit Provider Obstetrics & Gynecology
DX: N85.2 Hypertrophy of uterus (principal); N85.4 Malposition of uterus; N83.02 Follicular cyst of left ovary; N83.01 Follicular cyst of right ovary; N93.9 Abnormal uterine and vaginal bleeding, unspecified; N92.0 Excessive and frequent menstruation with regular cycle; N99.89 Other postprocedural complications and disorders of genitourinary system; Z98.891 History of uterine scar from previous surgery
CPT/HCPCS: 76830